=== PATIENT | male | born 1965 | race Caucasian/White ===

== ENCOUNTER 2016-09-01 19:56 | Emergency (ER) | payer BC | END 2016-09-01 21:30 | disposition T | LOC: EDMED 19:56 | PROC: 0HQ1XZZ Repair Face Skin, External Approach (ICD-10-PCS; principal; 2016-09-01) | DX: S01.81XA Laceration without foreign body of other part of head, initial encounter (principal); Z23 Encounter for immunization; W21.03XA Struck by baseball, initial encounter; Y93.64 Activity, baseball; Y92.830 Public park as the place of occurrence of the external cause; Y99.8 Other external cause status ==